=== PATIENT | female | born 1975 | race Caucasian/White ===

== ENCOUNTER 2017-01-14 19:57 | Observation (INO) | payer SELFPAY ==
--- NOTE | 2017-01-14 20:37 | EDPHY ---
H & P Time Seen by Provider: 01/14/17 20:22 HPI/ROS: CHIEF COMPLAINT: Hemoglobin of 6 HISTORY OF PRESENT ILLNESS: 41-year-old woman presents by her primary care physician at [facility] in [place] with hemoglobin of 6. She has a history of anemia but her hemoglobin was 12.8 in April of [address] Millan her primary care physician who called me at 7:56 p.m. prior to the patient's arrival. She presented to her physician this week with bilateral peripheral edema for 1 week, fatigue, and had these abnormal labs. Not associated with chest pain or shortness of breath. No syncope or fainting. No heavy menstrual periods or black or bloody stools. REVIEW OF SYSTEMS: Eye: no change in vision ENT: no sore throat Cardiac: no chest pain or syncope, no fainting, not lightheaded. Pulmonary: no cough or SOB Abdomen: no vomiting, diarrhea, abdominal pain Musculoskeletal: Chronic back pain, currently unchanged Skin: no rash or bruising Neuro: Intermittent headache not thunderclap in onset or worst of life Constitutional: no fever : no urinary symptoms, normal light menses. A comprehensive 10 point review of systems is otherwise negative aside from elements mentioned in the history of present illness. PAST MEDICAL HISTORY: Includes anemia, chronic back pain, . Thyroid disease. Social history: Primary care is at [facility] in [place] General Appearance: Alert and conversant, cooperative. Eyes: Pale conjunctiva, no scleral icterus. ENT, Mouth: Normal mucous membranes. Respiratory: Normal respiratory effort, breath sounds equal, lungs are clear to auscultation. Cardiovascular: Regular rate and rhythm. Tachycardic with 1/6 systolic murmur Gastrointestinal: Abdomen is soft and non tender. Neurological: Alert and oriented x3. Normally conversant. Face symmetric, normal movement and sensation in all extremities. Skin: Warm and dry, no rashes. Musculoskeletal: Patient has bilateral 1 to 2+ peripheral edema but no calf tenderness. Psychiatric: Not agitated. Emergency Department course/MDM: Repeat CBC, chemistries and test and EKG. Type and screen. Reason for performing rectal exam to evaluate for possible GI bleed discussed. Patient refused. 2117: Labs reviewed. White blood cell count 7.29, platelets 365, normal creatinine. Hemoglobin 6.5 and hematocrit 23.7. Results discussed with the patient. Plan to admit for further evaluation. Discussed with her PCP Dr. Millan at [phone]; who would like her admitted for further evaluation and treatment. She request discharge summary fax to . Office number [phone]. Discussed with hospitalist Dr. Cortez. MCV noted is low. Possibility of transfusion discussed with the patient, but I do not feel it is emergently required in the ED tonight. Information from [facility] PCP which was faxed to us is given to the ED nurse to and the inpatient RN, admitting hospitalist Eason is aware. Smoking Status: Never smoked Constitutional: Initial Vital Signs Temperature (C) 36.6 C 01/14/17 20:00 Heart Rate 114 H 01/14/17 20:00 Respiratory Rate 20 01/14/17 20:00 Blood Pressure 122/87 H 01/14/17 20:00 O2 Sat (%) 95 01/14/17 20:00 O2 Delivery Mode Room Air Allergies/Adverse Reactions: Penicillins Allergy (Verified 01/14/17 20:05) steri strips Allergy (Uncoded 01/14/17 20:05) Home Medications: Medication Instructions Recorded Amphet Asp and D/Amphet [Adderall 20 mg PO BID 01/14/17 20 mg (*)] Diclofenac Sodium [Voltaren 75 MG 75 mg PO BID 01/14/17 (*)] Zolpidem Tartrate [Ambien 5MG (*)] 5 mg PO HS PRN 01/14/17 oxyCODONE HCL [Oxycontin] 10 mg PO BID 01/14/17 oxyCODONE HCL/ACETAMINOPHEN 1 each PO BID 01/14/17 [Percocet 10-325 mg Tablet] traMADol [Ultram 50 mg (*)] 100 mg PO QID 01/14/17 Medical Decision Making - Diagnostics EKG Interpretation: 12-lead EKG interpreted by me; official reading is in trace master. My interpretation is sinus tachycardia with borderline prolonged QT interval but no acute ischemic changes, rate 104. Differential Diagnosis: Differential for anemia considered including but not limited to iron deficiency , upper GI bleed, menstrual losses, lower GI bleed, primary bone marrow problem. Consult/Admit Bed Type: [facility] - Data Points Laboratory Results: Laboratory Results 01/14/17 20:48 01/14/17 20:48 01/14/17 01/14/17 01/14/17 20:48 20:48 20:48 WBC RBC Hgb Hct MCV MCH MCHC RDW Plt Count MPV Neut % (Auto) Lymph % (Auto) [place] % (Auto) Eos % (Auto) Baso % (Auto) Nucleat RBC Rel Count Absolute Neuts (auto) Absolute Lymphs (auto) Absolute Monos (auto) Absolute Eos (auto) Absolute Basos (auto) Absolute Nucleated RBC Immature Gran % Immature Gran # Platelet Estimate Polychromasia Hypochromasia Microcytic Cells Smear Review By Sodium 136 mEq/L mEq/L (134-144) Potassium 3.9 mEq/L mEq/L (3.5-5.2) Chloride 105 mEq/L mEq/L (97-110) Carbon Dioxide 27 mEq/l mEq/l (22-31) Anion Gap 4 mEq/L L mEq/L (8-16) BUN 14 mg/dL mg/dL (7-23) Creatinine 0.6 mg/dL mg/dL (0.6-1.0) Estimated GFR > 60 Glucose 85 mg/dL mg/dL (70-100) Calcium 8.3 mg/dL L mg/dL (8.5-10.4) Beta HCG, Qual NEGATIVE Patient ABO/Rh O POSITIVE Antibody Screen NEGATIVE 01/14/17 20:48 WBC 7.29 10^3/uL 10^3/uL (3.80-9.50) RBC 3.15 10^6/uL L 10^6/uL (4.18-5.33) Hgb 6.5 g/dL L g/dL (12.6-16.3) Hct 23.7 % L % (38.0-47.0) MCV 75.2 fL L fL (81.5-99.8) MCH 20.6 pg L pg (27.9-34.1) MCHC 27.4 g/dL L g/dL (32.4-36.7) RDW 16.0 % H % (11.5-15.2) Plt Count 365 10^3/uL 10^3/uL (150-400) MPV 8.9 fL fL (8.7-11.7) Neut % (Auto) 61.4 % % (39.3-74.2) Lymph % (Auto) 25.1 % % (15.0-45.0) [place] % (Auto) 7.1 % % (4.5-13.0) Eos % (Auto) 5.1 % % (0.6-7.6) Baso % (Auto) 1.0 % % (0.3-1.7) Nucleat RBC Rel Count 0.0 % % (0.0-0.2) Absolute Neuts (auto) 4.48 10^3/uL 10^3/uL (1.70-6.50) Absolute Lymphs (auto) 1.83 10^3/uL 10^3/uL (1.00-3.00) Absolute Monos (auto) 0.52 10^3/uL 10^3/uL (0.30-0.80) Absolute Eos (auto) 0.37 10^3/uL 10^3/uL (0.03-0.40) Absolute Basos (auto) 0.07 10^3/uL 10^3/uL (0.02-0.10) Absolute Nucleated RBC 0.00 10^3/uL 10^3/uL (0-0.01) Immature Gran % 0.3 % % (0.0-1.1) Immature Gran # 0.02 10^3/uL 10^3/uL (0.00-0.10) Platelet Estimate ADEQUATE (ADEQ) Polychromasia 1+ H Hypochromasia 1+ H Microcytic Cells 1+ H Smear Review By Pending Sodium Potassium Chloride Carbon Dioxide Anion Gap BUN Creatinine Estimated GFR Glucose Calcium Beta HCG, Qual Patient ABO/Rh Antibody Screen Departure - Departure Disposition: [facility] Inpatient Acute Clinical Impression: Anemia Condition: Good
--- NOTE | 2017-01-14 20:53 | CPEKG ---
Heart Rate: 104 RR Interval: 577 P-R Interval: 128 QRSD Interval: 76 QT Interval: 372 QTC Interval: 490 P [place]: 69 QRS [place]: 21 T Wave [place]: 20 EKG Severity - BORDERLINE ECG - EKG Impression: SINUS TACHYCARDIA EKG Impression: BORDERLINE T WAVE ABNORMALITIES EKG Impression: BORDERLINE PROLONGED QT INTERVAL Electronically Signed By: Chivo Parham 14-Jan-2017 21:31:49
[2017-01-14 21:07] LABS: % IMMATURE GRANULYOCYTES 0.3 % (0.0-1.1); ABSOLUTE IMMATURE GRANULOCYTES 0.02 10^3/uL (0.00-0.10); ADD DIFF? NO; ADD MORPH? YES; ADD SCAN? NO; ATYPICAL LYMPHOCYTE FLAG 20 (0-99); FRAGMENT RBC FLAG 20 (0-99); HEMATOCRIT 23.7 % (38.0-47.0); LEFT SHIFT FLG 0 (0-99); LIPEMIA HEMOLYSIS FLAG 70 (0-99); MEAN CELL HEMOGLOBIN 20.6 pg (27.9-34.1); MEAN CELL VOLUME 75.2 fL (81.5-99.8); MEAN PLATELET VOLUME 8.9 fL (8.7-11.7); PLATELET CLUMPS FLAG 0 (0-99); PLATELET COUNT 365 10^3/uL (150-400); RED BLOOD CELL COUNT 3.15 10^6/uL (4.18-5.33)
[2017-01-14 21:12] LABS: ANION GAP 4 mEq/L (8-16); CALCIUM 8.3 mg/dL (8.5-10.4); CARBON DIOXIDE 27 mEq/l (22-31); CHLORIDE 105 mEq/L (97-110); CREATININE 0.6 mg/dL (0.6-1.0); GLOMERULAR FILTRATION RATE > 60; GLUCOSE 85 mg/dL (70-100); POTASSIUM 3.9 mEq/L (3.5-5.2); SODIUM 136 mEq/L (134-144)
[2017-01-14 21:14] LABS: HEMOGLOBIN 6.5 g/dL (12.6-16.3); MEAN CELL HEMOGLOBIN CONCENTR. 27.4 g/dL (32.4-36.7)
[2017-01-14 22:04] LABS: HYPOCHROMIA 1+; MICROCYTES 1+; PLATELET ESTIMATE ADEQUATE (ADEQ); POLYCHROMASIA 1+
[2017-01-14] MEDS ORDERED: ONDANSETRON 4 MG/2 ML VIAL IVP PRN (22:16)
[2017-01-14] MEDS ORDERED: ONDANSETRON DISINTEGRATING 4 MG TAB PO PRN (22:16)
[2017-01-14] MEDS ORDERED: ACETAMINOPHEN 325 MG TAB PO PRN (22:16)
[2017-01-14 23:08] LABS: ALBUMIN 2.6 g/dL (3.5-5.0); TOTAL PROTEIN 4.8 g/dL (6.3-8.2)
[2017-01-14 23:13] LABS: BILIRUBIN,TOTAL 0.1 mg/dL (0.1-1.4); BILIRUBIN-CONJUGATED 0.1 mg/dL (0.0-0.5)
--- NOTE | 2017-01-14 23:47 | PDGENHP ---
History and Physical - Chief Complaint Fatigue, anemia - History of Present Illness 41 yo F w/ hx of hypothyroid presents from PCP with fatigue and anemia. Patient describes 2 weeks of severe fatigue and pedal edema. As a result she went to her PCP who checked labs. These were remarkable for a Hgb of 6.5 so PCP directed her to the ED for further evaluation. Patient denies any overt signs of bleeding or heavy periods. She has no family history of bleeding or clotting disorders. She is asymptomatic at the time of my evaluation aside from fatigue, which improved with fluids. She is being admitted for further evaluation and GI consultation. History Information - Allergies/Home Medication List Allergies/Adverse Reactions: Penicillins Allergy (Verified 01/14/17 20:05) steri strips Allergy (Uncoded 01/14/17 20:05) Home Medications: Amphet Asp and D/Amphet [Adderall 20 mg (*)] 20 mg PO BID 01/14/17 [Last Taken 01/14/17 06:00] Diclofenac Sodium [Voltaren 75 MG (*)] 75 mg PO BID 01/14/17 [Last Taken 19:00] Zolpidem Tartrate [Ambien 5MG (*)] 5 mg PO HS PRN 01/14/17 [Last Taken 01/12/17] oxyCODONE HCL [Oxycontin] 10 mg PO BID 01/14/17 [Last Taken 01/14/17 06:00] oxyCODONE HCL/ACETAMINOPHEN [Percocet 10-325 mg Tablet] 1 each PO BID 01/14/17 [ Last Taken 01/14/17 06:00] traMADol [Ultram 50 mg (*)] 100 mg PO QID 01/14/17 [Last Taken 01/14/17 12:00] I have personally reviewed and updated: family history, medical history - Past Medical History Additional medical history: Hypothyroid - Surgical History Additional surgical history: D&C complicated by blood loss anemia - Family History Additional family history: Denies family hx of blood disorders - Social History Smoking Status: Never smoked Review of Systems Review of Systems: ROS: 10pt was reviewed & negative except for what was stated in HPI & below Physical Exam Physical Exam: Temp Pulse Resp BP Pulse Ox 36.9 C 99 14 114/75 97 01/14/17 22:44 01/14/17 22:44 01/14/17 22:44 01/14/17 22:44 01/14/17 22:44 Constitutional: no apparent distress, not in pain Eyes: PERRL, EOMI, pale conjunctiva Ears, Nose, Mouth, Throat: moist mucous membranes, no oral mucosal ulcers Cardiovascular: regular rate and rhythym, systolic murmur Respiratory: no respiratory distress, no rales or rhonchi Gastrointestinal: normoactive bowel sounds, soft, non-tender abdomen Skin: warm, normal color Musculoskeletal: full muscle strength, no muscle tenderness Neurologic: AAOx3, CN II-XII Intact Psychiatric: interacting appropriately, not anxious Lab Data & Imaging Review 01/14/17 20:48 01/14/17 20:48 WBC 7.29 10^3/uL (3.80-9.50) 01/14/17 20:48 RBC 3.15 10^6/uL (4.18-5.33) L 01/14/17 20:48 Hgb 6.5 g/dL (12.6-16.3) L 01/14/17 20:48 Hct 23.7 % (38.0-47.0) L 01/14/17 20:48 MCV 75.2 fL (81.5-99.8) L 01/14/17 20:48 MCH 20.6 pg (27.9-34.1) L 01/14/17 20:48 MCHC 27.4 g/dL (32.4-36.7) L 01/14/17 20:48 RDW 16.0 % (11.5-15.2) H 01/14/17 20:48 Plt Count 365 10^3/uL (150-400) 01/14/17 20:48 MPV 8.9 fL (8.7-11.7) 01/14/17 20:48 Neut % (Auto) 61.4 % (39.3-74.2) 01/14/17 20:48 Lymph % (Auto) 25.1 % (15.0-45.0) 01/14/17 20:48 [place] % (Auto) 7.1 % (4.5-13.0) 01/14/17 20:48 Eos % (Auto) 5.1 % (0.6-7.6) 01/14/17 20:48 Baso % (Auto) 1.0 % (0.3-1.7) 01/14/17 20:48 Nucleat RBC Rel Count 0.0 % (0.0-0.2) 01/14/17 20:48 Absolute Neuts (auto) 4.48 10^3/uL (1.70-6.50) 01/14/17 20:48 Absolute Lymphs (auto) 1.83 10^3/uL (1.00-3.00) 01/14/17 20:48 Absolute Monos (auto) 0.52 10^3/uL (0.30-0.80) 01/14/17 20:48 Absolute Eos (auto) 0.37 10^3/uL (0.03-0.40) 01/14/17 20:48 Absolute Basos (auto) 0.07 10^3/uL (0.02-0.10) 01/14/17 20:48 Absolute Nucleated RBC 0.00 10^3/uL (0-0.01) 01/14/17 20:48 Immature Gran % 0.3 % (0.0-1.1) 01/14/17 20:48 Immature Gran # 0.02 10^3/uL (0.00-0.10) 01/14/17 20:48 Platelet Estimate ADEQUATE (ADEQ) 01/14/17 20:48 Polychromasia 1+ H 01/14/17 20:48 Hypochromasia 1+ H 01/14/17 20:48 Microcytic Cells 1+ H 01/14/17 20:48 Sodium 136 mEq/L (134-144) 01/14/17 20:48 Potassium 3.9 mEq/L (3.5-5.2) 01/14/17 20:48 Chloride 105 mEq/L (97-110) 01/14/17 20:48 Carbon Dioxide 27 mEq/l (22-31) 01/14/17 20:48 Anion Gap 4 mEq/L (8-16) L 01/14/17 20:48 BUN 14 mg/dL (7-23) 01/14/17 20:48 Creatinine 0.6 mg/dL (0.6-1.0) 01/14/17 20:48 Estimated GFR > 60 01/14/17 20:48 Glucose 85 mg/dL (70-100) 01/14/17 20:48 Calcium 8.3 mg/dL (8.5-10.4) L 01/14/17 20:48 Total Bilirubin 0.1 mg/dL (0.1-1.4) 01/14/17 20:48 Conjugated Bilirubin 0.1 mg/dL (0.0-0.5) 01/14/17 20:48 Unconjugated Bilirubin 0.0 mg/dL (0.0-1.1) 01/14/17 20:48 AST 21 IU/L (14-46) 01/14/17 20:48 ALT 28 IU/L (9-52) 01/14/17 20:48 Alkaline Phosphatase 59 IU/L (38-126) 01/14/17 20:48 Total Protein 4.8 g/dL (6.3-8.2) L 01/14/17 20:48 Albumin 2.6 g/dL (3.5-5.0) L 01/14/17 20:48 Beta HCG, Qual NEGATIVE 01/14/17 20:48 Patient ABO/Rh O POSITIVE 01/14/17 20:48 Antibody Screen NEGATIVE 01/14/17 20:48 Visualized and Interpreted EKG results: Yes EKG Interpretation: Positive for: normal sinsus rhythm Assessment & Plan Assessment: 41 yo F w/ hypothyroid presents with acute on chronic anemia of unclear etiology. Plan: 1. Microcytic anemia - Hgb 6.5 on admission with unclear etiology and no overt signs of bleeding; patient also denies heavy menses. Other cell lines WNL. B- HCG negative. Bilirubin WNL making hemolysis unlikely. - Patient would prefer to defer transfusion for now - Check TSH, iron studies, reticulocyte count, LDH, haptoglobin - Peripheral smear final review pending - Discussed with GI Dr. Schultz who did not feel urgent evaluation was necessary. He did ask to make patient NPO and GI will see tomorrow 2. Pedal edema - Likely 2/2 hypoalbuminemia , but unclear why this is ongoing; other LFTs unremarkable. Thyroid disease or malnutrition are possible considerations. - Check UA to screen for proteinuria - No signs or symptoms of CHF, will not obtain TTE at this time 3. Hypothyroid - On LTX chronically, checking TSH. Diet - NPO @ [place] Code - Full Ppx - SCDs Dispo - Admit to observation status
[2017-01-15] MEDS: traMADol 50 MG TAB PO PRN ×2 (00:17→09:37)
[2017-01-15] MEDS: oxyCODONE IR 5 MG TAB PO PRN ×3 (01:11→12:39)
[2017-01-15 05:40] LABS: % IMMATURE GRANULYOCYTES 0.4 % (0.0-1.1); ABSOLUTE IMMATURE GRANULOCYTES 0.02 10^3/uL (0.00-0.10); ADD DIFF? NO; ADD MORPH? YES; ADD SCAN? NO; ATYPICAL LYMPHOCYTE FLAG 40 (0-99); FRAGMENT RBC FLAG 0 (0-99); HEMATOCRIT 22.4 % (38.0-47.0); LEFT SHIFT FLG 0 (0-99); LIPEMIA HEMOLYSIS FLAG 70 (0-99); MEAN CELL HEMOGLOBIN 20.4 pg (27.9-34.1); MEAN CELL VOLUME 74.9 fL (81.5-99.8); MEAN PLATELET VOLUME 8.7 fL (8.7-11.7); PLATELET CLUMPS FLAG 0 (0-99); PLATELET COUNT 311 10^3/uL (150-400); RED BLOOD CELL COUNT 2.99 10^6/uL (4.18-5.33); RED CELL DISTRIBUTION WIDTH 15.9 % (11.5-15.2)
[2017-01-15 05:46] LABS: COLOR PALE YELLOW; LEUKOCYTE ESTERASE,URINE NEGATIVE (NEGATIVE); NITRITE,URINE NEGATIVE (NEGATIVE)
[2017-01-15 05:50] LABS: ANION GAP 5 mEq/L (8-16); CALCIUM 8.2 mg/dL (8.5-10.4); CARBON DIOXIDE 24 mEq/l (22-31); CHLORIDE 111 mEq/L (97-110); CREATININE 0.6 mg/dL (0.6-1.0); GLOMERULAR FILTRATION RATE > 60; GLUCOSE 88 mg/dL (70-100); HEMOGLOBIN 6.1 g/dL (12.6-16.3); LACTATE DEHYDROGENASE 284 IU/L (313-618); MEAN CELL HEMOGLOBIN CONCENTR. 27.2 g/dL (32.4-36.7); POTASSIUM 4.1 mEq/L (3.5-5.2); SODIUM 140 mEq/L (134-144)
[2017-01-15 05:59] LABS: % SATURATION 3 % (20-55); TOTAL IRON BINDING CAPACITY 332 ug/dL (260-490)
[2017-01-15 06:21] LABS: FERRITIN - BCH 3.1 ng/mL (6.2-264.0)
[2017-01-15 06:29] LABS: HYPOCHROMIA 1+; MACROCYTES 1+; PLATELET ESTIMATE ADEQUATE (ADEQ); POLYCHROMASIA 1+
[2017-01-15] MEDS ORDERED: SODIUM FERRIC GLUCONAT/SUCROSE 125 MG in NS 100 ML IV SCH (09:30)
[2017-01-15] MEDS ORDERED: PROPOFOL/EMULSION 500 MG/50 ML BOTTLE IV ONE (10:21)
--- NOTE | 2017-01-15 10:28 | PDANEPAE ---
ANE History of Present Illness 41 year old female w/ PMHx of hypothyroidism and recently diagnosed anemia (Hgb= 6.1) presents for EGD. Inpatient. ANE Past Medical History - Cardiovascular History Hx Hypertension: No Hx Arrhythmias: No Hx Chest Pain: No Hx Coronary Artery / Peripheral Vascular Disease: No Hx CHF / Valvular Disease: No Hx Palpitations: No - Pulmonary History Hx COPD: No Hx Asthma/Reactive Airway Disease: No Hx Recent Upper Respiratory Infection: No Hx Oxygen in Use at Home: No Hx Sleep Apnea: No Sleep Apnea Screening Result - Last Documented: Negative - Endocrine History Hx Diabetes: No Hypothyroid: Yes Hyperthyroid: Yes Obesity: no Endocrine History Comment: Thyroid (hypothyroid - but on replacement therapy that has her hyperthyroid per patient report) - Renal History Hx Renal Disorders: No - Liver History Hx Hepatic Disorders: No - Neurological & Psychiatric Hx Hx Neurological and Psychiatric Disorders: No - Cancer History Hx Cancer: No - Congenital Disorder History Hx Congenital Disorders: No - Other Health History Other Health History: Anemia - etiology unknown. Hgb=6.1 - Chronic Pain History Chronic Pain: Yes ANE Review of Systems Review of systems is: negative Review of Systems: - Exercise capacity Exercise capacity: >=4 METS ANE Patient History - Allergies Allergies/Adverse Reactions: Penicillins Allergy (Verified 01/14/17 20:05) steri strips Allergy (Uncoded 01/14/17 20:05) - Home Medications Home medications: home medication list seen and reviewed Home Medications: Amphet Asp and D/Amphet [Adderall 20 mg (*)] 20 mg PO BID 01/14/17 [Last Taken 01/14/17 06:00] Diclofenac Sodium [Voltaren 75 MG (*)] 75 mg PO BID 01/14/17 [Last Taken 19:00] Zolpidem Tartrate [Ambien 5MG (*)] 5 mg PO HS PRN 01/14/17 [Last Taken 01/12/17] oxyCODONE HCL [Oxycontin] 10 mg PO BID 01/14/17 [Last Taken 01/14/17 06:00] oxyCODONE HCL/ACETAMINOPHEN [Percocet 10-325 mg Tablet] 1 each PO BID 01/14/17 [ Last Taken 01/14/17 06:00] traMADol [Ultram 50 mg (*)] 100 mg PO QID 01/14/17 [Last Taken 01/14/17 12:00] - NPO status NPO Status: no food or drink >8 hours - Anes Hx Anes Hx: no prior problems - Smoking Hx Smoking Status: Never smoked Marijuana use: No - Alcohol Use Alcohol Use: Rarely - Family Anes Hx Family Anes Hx: neg - N/A ANE Labs/Vital Signs - Labs Result Diagrams: 01/15/17 05:12 01/15/17 05:12 - Vital Signs Vital Signs: reviewed preoperatively; see RN documention for details Blood Pressure: 104/61 Heart Rate: 99 Respiratory Rate: 16 O2 Sat (%): 91 Height: 162.56 cm Weight: 61.689 kg ANE Physical Exam - Airway Neck exam: FROM Mallampati Score: Class 1 Mouth exam: normal dental/mouth exam - Pulmonary Pulmonary: no respiratory distress - Cardiovascular Cardiovascular: regular rate and rhythym - ASA Status ASA Status: II ANE Anesthesia Plan Anesthesia Plan: GA with mask Total IV Anesthesia: Yes
[2017-01-15] MEDS ORDERED: ONDANSETRON 4 MG/2 ML VIAL IVP PRN (10:46)
[2017-01-15] MEDS ORDERED: fentaNYL 100 MCG/2 ML INJ IVP PRN (10:46)
[2017-01-15] MEDS ORDERED: NALOXONE HCL 0.4 MG/ML INJ IVP PRN (10:46)
[2017-01-15] MEDS ORDERED: LR 500 ML IV PRN (10:46)
--- NOTE | 2017-01-15 10:51 | POSTOPPROG ---
Post Op Note Date of Operation: 01/15/17 Surgeon: Robinson Schultz Anesthesiologist: Robinson Lemon MD Anesthesia: Other (Specify) (IV general) Pre-op Diagnosis: iron def anemia Post-op Diagnosis: gastritis with small amount of heme and duodenitis s/p bx Indication: iron def anmeia HB = 6.1 Procedure: EGD and bx cold forceps Findings: gastritis mild, with small amount of heme present Inf/Abcess present in the surg proc area at time of surgery?: No EBL: Minimal (few ml from cold bx) Total fluids administered: 200 ml LR Complications: none immediate
--- NOTE | 2017-01-15 11:14 | GIREPORT ---
[facility] Surgical Services - Endoscopy Department Patient Name: Jenelle Morales Procedure Date: 01/15/2017 10:36 AM Patient Type: Inpatient Attending MD/ ER Physician: Bill Pickett Procedure: Upper GI endoscopy Indications: Suspected upper gastrointestinal bleeding in patient with unexplained i sagrario deficiency anemia Providers: Jin Schultz MD Referring MD: Idris Alfaro MD Medicines: Total IV Anesthesia (TIVA) = IV general Complications: No immediate complications. Estimated blood loss: Minimal. Description of Procedure: After obtaining informed consent, the endoscope was passed under direct vision. Throughout the procedure, the patient's blood pressure, pulse, and oxygen saturations were monitored continuously. The was introduced thro ugh the mouth, and advanced to the fourth part of duodenum. The upper GI endoscopy was accomplished without difficulty. The patient tolerated th e procedure well. Findings: The examined esophagus was normal. Scattered mild inflammation characterized by adherent blood, friability and granularity was found in the gastric body and in the gastric antrum. Biopsies were taken with a cold forceps for histology. Estimated blood loss was minimal. Scattered mild mucosal variance characterized by erythema and altered texture was found in the entire duodenum. Biopsies for histology were t aken with a cold forceps for evaluation of celiac disease. Estimated blood l oss was minimal. The exam was otherwise without abnormality. Estimated Blood Loss: Estimated blood loss was minimal. Post Op Diagnosis: - Normal esophagus. - Gastritis. Biopsied. This might account for her anemia, but I was expecting to see much more inflammation and or ulceration and I didn't see any "big smoking gun" findings on her EGD - Mucosal variant in the duodenum. Biopsied. - The examination was otherwise normal. Recommendation: - Await pathology results. - My office will call with the pathology result with 5-7 days. If you h ave not heard from my office by 01-21, do not assume the pathology is kerry l, please call [phone] to get the pathology results. - Use Protonix (pantoprazole) 40 mg PO daily for 8 weeks. Take 30-60 mi nutes before breakfast. - Perform a colonoscopy tomorrow. I will discuss with her when she is n ot sedated. Insurance and cost is an issue for her. - If colon is negative and iron deficiency dose not resolve or recurs a nd no Celiac disease, then small bowel pill camera study. - [facility] to [facility] care. - Clear liquid diet. - Thank you for allowing me to help in your patient's care. Do not hesi leonardo to call with any questions. Attending Participation: I personally performed the entire procedure. Marion Abdi M.D Jin Schultz MD 01/15/2017 11:13:58 AM This report has been signed electronicallyMathew MD Marion Number of Addenda: 0 Note Initiated On: 01/15/2017 10:36 AM [email or web address]
--- NOTE | 2017-01-15 11:18 | GCON ---
[f rep st] CONSULTATION CONSULTATION. DATE OF CONSULTATION: 01/15/2017 REFERRING PHYSICIAN: Renetta Solano MD INDICATION FOR CONSULTATION: Symptomatic anemia. HISTORY OF PRESENT ILLNESS: Jenelle is a pleasant 41-year-old female with past medical history significant for hypothyroidism, back pain, who is on chronic pain medications as well as Ambien at night. She has also been taking diclofenac for 1 year. Approximately 3 weeks ago, she started to notice some dyspnea on exertion and lower extremity edema. She presented to her PCP who judith laboratory data that showed significant anemia and she was directed to the ER for further evaluation. She denies any nausea, vomiting, dysphagia, odynophagia, or early satiety. She does not complain of any diarrhea, constipation, hematochezia, melena, hematemesis, epistaxis or hematuria. She does take diclofenac for the last year. There is no family history of colon cancer, colon polyps to her knowledge. There is hyperthyroidism in her family and maternal grandfather had prostate cancer, maternal grandmother had ovarian cancer. Because of her significant anemia, she was admitted for evaluation, I am called to help in that regard. PAST MEDICAL SURGICAL HISTORY: Hypothyroidism, back pain, C-sections, D and C, tonsillectomy. HOME MEDICATIONS: Tramadol, oxycodone, Ambien, Synthroid and diclofenac, Adderall. HOSPITAL MEDICATIONS: Tylenol p.r.n., IV iron, Zofran p.r.n., oxycodone p.r.n. , Ultram 100 mg p.o. four times daily p.r.n. ALLERGIES: Penicillin and Steri-Strips. SOCIAL HISTORY: She does not smoke. She drinks alcohol rarely. She exercises regularly. FAMILY HISTORY: no colon cancer, REVIEW OF SYSTEMS: A complete review of systems performed is negative other than in the HPI. PHYSICAL EXAM: GENERAL: Well developed, well nourished, no acute distress, sitting in her bed comfortably. VITAL SIGNS: Blood pressure is 104/61, pulse 75, respirations 16, she is 91% on room air, temperature is 36.8. EYES: Anicteric. MILAN. EOMI. Mouth no lesions, moist membranes. NECK: Supple. Full range of motion. No JVD. BACK: No spine tenderness. No CVA tenderness. LUNGS: Clear to auscultation. CARDIAC: S1, S2. Regular rate and rhythm. No murmurs, rubs or gallops appreciated. ABDOMEN: Soft. No tenderness. No rebound. No guarding. EXTREMITIES: No cyanosis, clubbing. Trace edema lower extremities. NEUROLOGIC: Cranial nerves intact nonfocal. Alert and oriented x3. LABORATORY DATA: On admission, hemoglobin 6.1, hematocrit 23.7, that was yesterday at approximately 9 p.m. Today, WBC 4.88, hemoglobin 6.1, hematocrit 22.4, platelet count is 311, MCV 74.9, RDW 27.2. Sodium 140, potassium 4.1, chloride 111, bicarb 24, BUN 9, creatinine 0.6, calcium 8.2, iron 11, TIBC 332, iron saturation 3, ferritin 3.1. From last night AST 21, ALT 28, alkaline phosphatase 59, bilirubin 0.1, albumin 2.6, total protein 4.6. From today her LDH is little bit low at 284. TSH is low at 0.015. From yesterday beta HCG is negative. EKG performed last night, sinus tachycardia, borderline for long QT, borderline T-wave abnormalities. ASSESSMENT: 1. Iron-deficiency anemia most likely from chronic gastrointestinal blood loss related to her diclofenac. 2. Hypothyroidism. 3. Chronic pain. 4. Use of oxycodone, Ambien and Adderall. RECOMMENDATIONS: 1. Ideally, patient should have an EGD, colonoscopy. Currently, she is uninsured and wants to see if we can decrease the cost somewhat. I do believe that she is more likely to have an upper GI bleeding source than a colonic source given her age and her diclofenac use and lack of any significant family history. Currently, we are going to plan an EGD with anesthesia. and if the EGD reveals an abnormality consistent that would cause the iron deficiency we are going to treat that and recommend colonoscopy as an outpatient when she obtains insurance. 2. Patient declines blood transfusion at present, but she is getting some iron infusion which should help her body replete her hemoglobin and hematocrit. 3. Follow results of EGD. 4. I do recommend that she make a concerted effort to come off chronic narcotic use and also to avoid chronic NSAID use. 5. After discharge, she will follow up with her PCP. She may require followup with us other than a colonoscopy in the near future. Thank you for allowing me to participate in your patient's healthcare. Do not hesitate to call me with any question. Copy requested to: Idris Alfaro MD /[id number]/MODL [email or web address]
--- NOTE | 2017-01-15 11:46 | POSTANESTH ---
Post Anesthetic Evaluation Cardiovascular Status: Normal, Stable, Similar to Pre-Op Cond Respiratory Status: Normal, Stable, Similar to Pre-op Cond. Level of Consciousness/Mental Status: Can Participate in Eval, Alert and Oriented Pain Control: Adequate, Prn Tx Ordered Nausea/Vomiting Control: Adequate, Prn Tx Ordered Complications Possibly Related to Anesthesia: None Noted
--- NOTE | 2017-01-15 14:23 | ASMTCMCOM ---
CM Note CM Note Notes: 01/15/2017 Case Management Note Reviewed chart. No case management d/c needs identified d/t pt age, marital status and activity levels prior to admission. There are no OT or PT evals ordered at this time. Case Management d/c poc: Home independent when medically stable with follow up as directed. Case Management available if needs change. Date Signed: 01/15/2017 02:22 PM Electronically Signed By:Priscilla Colon RN
[2017-01-15] MEDS ORDERED: ZOLPIDEM TARTRATE 5 MG TAB PO PRN (15:11)
[2017-01-15] MEDS ORDERED: PANTOPRAZOLE SODIUM 40 MG TAB PO SCH (15:15)
[2017-01-15 16:20] VITALS: BP 117/68; PULSE 100; RESP 18; TEMP 98.1; O2SAT 98
[2017-01-15] MEDS ORDERED: PEG 3350/NA SULF,BICARB,CL/KCL (GAVILYTE-G) 4000 ML BTL PO ONE (17:00)
--- NOTE | 2017-01-15 17:02 | PDDCSUM ---
Discharge Summary Discharge Summary: DISCHARGE SUMMARY FOLLOW-UP ITEMS: Follow-up outpatient CBC and complete metabolic profile DATE OF ADMISSION: 01/14/2017 DATE OF DISCHARGE: 01/15/2017 DISCHARGE DIAGNOSES: 1. Iron deficient anemia 2. Gastritis 3. Chronic pain with continuous opiate dependency CONSULTATIONS: Gastroenterology PROCEDURES / IMAGING: Upper endoscopy demonstrating gastritis, no source of active bleeding CHIEF COMPLAINT: Fatigue SUBJECTIVE: Patient is feeling well at time of discharge, she is able to ambulate without any symptoms PHYSICAL EXAM ON DISCHARGE: Systolic blood pressure is 100-120, heart rate 100, afebrile overnight, satting well on room air, alert awake oriented x3, pale in appearance LABS ON DISCHARGE: Hemoglobin 6.1, iron 11, saturation 3%, TIBC 332, LDH 280, reticulocyte percent 2.7% TSH less than 0.015 creatinine 0.6, BUN 9, urinalysis unremarkable albumin 2.6 liver panel unremarkable test negative platelets [id number] HOSPITAL COURSE BY PROBLEM: The patient presented with iron deficient anemia as evidenced by hemoglobin between 6.1-6.5, low iron count, low saturation, mildly elevated TIBC, without any signs of hemolysis, with a normal LDH, normal bilirubin. The patient declined blood transfusion, but did except 1 treatment of IV iron. She underwent upper endoscopy which demonstrated some blood, as well as gastritis, but no source of active bleeding. Is unclear whether this is the cause of a chronic iron deficient anemia, verses lower GI process. The patient was advised to have a colonoscopy for completeness sake, and she will undergo this as an outpatient. I recommended that she continue proton pump inhibitor daily, as well as iron supplement, and have repeat hemoglobin and metabolic profile drawn next week. She should have close outpatient follow-up with either GI of the [facility] primary care provider. Patient was also concerned about lower extremity edema, and this is most likely secondary to her anemia, resulting in a low albumin level as well as low oncotic pressure. The patient was recommended to wear compression stockings, elevate her legs, and improve her anemia in order to accomplish improvement in her edema. I did not recommend use of a diuretic, given that she has a low normal blood pressure at baseline. DISCHARGE MEDICATIONS: Please see official discharge medication reconciliation sheet in chart , iron 325 twice daily, Senokot S twice daily, pantoprazole 40 mg once daily. Patient will continue on her other pain medications. DISCHARGE INSTRUCTIONS: Please follow up with either GI of the [facility] primary care provider office.
[2017-01-15] MEDS ORDERED: ADDERALL 20 MG TAB PO SCH (21:00)
[2017-01-15] MEDS ORDERED: NON-FORMULARY NEW DRUG (Oxycodone Hcl/Acetaminophen [Percocet 10-325 Mg Tablet] 1 EACH) PO SCH (21:00)
[2017-01-15] MEDS ORDERED: OXYCODONE/APAP 5/325 TAB PO SCH (21:00)
--- NOTE | 2017-01-16 13:48 | ASDISCHSUM ---
Discharge Information Plan Status:Home with No Needs Medically Cleared to Leave: Discharge Date:01/15/2017 05:35 PM CM D/C Disposition:Home, Routine, Self-Care ADT D/C Disposition:Home, Routine, Self-Care Projected Discharge Date:01/15/2017 05:35 PM Transportation at D/C:Family Discharge Delay Reason: Follow-Up Date:01/15/2017 05:35 PM Discharge Slot: Final Diagnosis: Placement Information Patient Contact Information Contact Name:RIMMA Relationship: Address:[address] Work Phone: [facility]:PRINCESS ANNE Alternate Phone: [facility]/Zip Code:[place] [address] Email: Financial Information Financial Class:Self-Pay Primary Plan Desc:SELF PAY Primary Plan Number: Secondary Plan Desc: Secondary Plan Number: Assessment Information [facility] CM Progress Note CM Note CM Note Notes: 01/15/2017 Case Management Note Reviewed chart. No case management d/c needs identified d/t pt age, marital status and activity levels prior to admission. There are no OT or PT evals ordered at this time. Case Management d/c poc: Home independent when medically stable with follow up as directed. Case Management available if needs change. Date Signed: 01/15/2017 02:22 PM Electronically Signed By:Priscilla Colon RN Intervention Information
== END 2017-01-15 17:35 | disposition home or self-care (01) ==
LOC: F3E 22:33
PROVIDERS: ADMIT Internal Medicine; ATTEND Internal Medicine
PROC: 0DB98ZX Excision of Duodenum, Via Natural or Artificial Opening Endoscopic, Diagnostic (ICD-10-PCS; principal; 2017-01-14)
PROC: 0DB78ZX Excision of Stomach, Pylorus, Via Natural or Artificial Opening Endoscopic, Diagnostic (ICD-10-PCS; principal; 2017-01-14)
PROC: 0DB68ZX Excision of Stomach, Via Natural or Artificial Opening Endoscopic, Diagnostic (ICD-10-PCS; principal; 2017-01-14)
DX: D50.0 Iron deficiency anemia secondary to blood loss (chronic) (principal); T39.395A Adverse effect of other nonsteroidal anti-inflammatory drugs [NSAID], initial encounter; K29.71 Gastritis, unspecified, with bleeding; G89.29 Other chronic pain; F11.20 Opioid dependence, uncomplicated; E88.09 Other disorders of plasma-protein metabolism, not elsewhere classified; E03.9 Hypothyroidism, unspecified
CPT/HCPCS: 83010-90; G0378; J2704; J2916

== ENCOUNTER 2017-03-10 10:38 | Emergency (ER) | payer MEDICAID ==
--- NOTE | 2017-03-10 12:15 | EDPHY ---
H & P Stated Complaint: anemia/?esophageal bleed/upper abd pain Time Seen by Provider: 03/10/17 12:14 HPI/ROS: HPI: This is a 41-year-old female who presents with Chief Complaint: anemia/?esophageal bleed/upper abd pain Location: Epigastric Quality: Pain Duration: 1-2 weeks Signs and Symptoms: no fever, + nausea, no vomiting, no hematemesis, no blood in stool, no abdominal bloating, no diarrhea, no back pain, no urinary symptoms , no vaginal bleeding/discharge, no indigestion, no chest pain, no shortness of breath, + indigestion, no dysphagia Timing: Gradual onset, constant Severity: Moderate to severe Context: Patient presents with 1 week history epigastric, sharp pain that is constant and worsens when she tries to eat food. She is able to drink fluids without difficulty. She reports that she was admitted in January for iron deficiency anemia that required iron transfusion but declined blood transfusion. EGD at that time showed gastritis, duodenitis. There is a history of opiate dependency. She takes Protonix 40 mg daily. She denies any recent NSAID or steroid use. She reports 10-15 lb weight loss over the last month. She denies any hematemesis/blood in stool/vomiting/diarrhea. Modifying Factors: Comment: ROS: see HPI Constitutional: No fever, no chills, no weight loss Eyes: No blurred vision Respiratory: No shortness of breath, no cough Cardiovascular: No chest pain, no palpitations Gastrointestinal: + nausea, no vomiting, no diarrhea, no hematemesis, no blood in stool Genitourinary: No dysuria, no blood in urine Extremities: No myalgias, no edema Neurologic: No weakness, no numbness Skin: No rashes, no petechiae Hematologic: No bruising, no bleeding MEDICAL/SURGICAL/SOCIAL HISTORY: Medical/Surgical history: , herniated disc, bursitis, hypothyroid / anemia Social history: Relationship. CONSTITUTIONAL: Extremely well-appearing adult female, awake and alert, no obvious distress HEENT: Atraumatic and normocephalic, PERRL, EOMI. Tympanic membranes clear. Oropharynx clear, no exudate and moist pink mucosa. Airway patent. No lymphadenopathy. No meningismus. Cardiovascular: Normal S1/S2, regular rate, regular rhythm, without murmur rub or gallop. PULMONARY/CHEST: Symmetrical and nontender. Clear to auscultation bilaterally. Good air movement. No accessory muscle usage. ABDOMEN: Soft, nondistended, moderate epigastric and right upper quadrant tenderness, no rebound, no guarding, no peritoneal signs, no masses or organomegaly. No CVAT. EXTREMITIES: 2/2 pulses, strength 5/5, no deformities, no clubbing, no cyanosis or edema. NEUROLOGICAL: no focal neuro deficits. GCS 15. SKIN: Warm and dry, no erythema. no rash. Good capillary refill. Source: Patient Exam Limitations: No limitations - Personal History LMP (Females 10-55): Over 28 Days Ago Current Tetanus/Diphtheria Vaccine: Yes - Medical/Surgical History Hx Asthma: No Hx Chronic Respiratory Disease: No Hx Diabetes: No Hx Cardiac Disease: No Hx Renal Disease: No Hx Cirrhosis: No Hx Alcoholism: No Hx HIV/AIDS: No Hx Splenectomy or Spleen Trauma: No Other PMH: , herniated disc, bursitis, hypothyroid / anemia - Social History Smoking Status: Never smoked Constitutional: Initial Vital Signs Temperature (C) 36.4 C 03/10/17 10:54 Heart Rate 102 H 03/10/17 10:54 Respiratory Rate 20 03/10/17 10:54 Blood Pressure 105/77 03/10/17 10:54 O2 Sat (%) 100 03/10/17 10:54 O2 Delivery Mode Room Air Allergies/Adverse Reactions: Penicillins Allergy (Verified 03/10/17 10:53) steri strips Allergy (Uncoded 01/14/17 20:05) Home Medications: Medication Instructions Recorded Amphet Asp and D/Amphet [Adderall 20 mg PO BID 01/14/17 20 mg (*)] Zolpidem Tartrate [Ambien 5MG (*)] 5 mg PO HS PRN 01/14/17 oxyCODONE HCL [Oxycontin] 10 mg PO BID 01/14/17 oxyCODONE HCL/ACETAMINOPHEN 1 each PO BID 01/14/17 [Percocet 10-325 mg Tablet] traMADol [Ultram 50 mg (*)] 100 mg PO QID 01/14/17 Acetaminophen [Tylenol 325mg (*)] 650 mg PO Q4HRS PRN tab 01/15/17 Ferrous Sulfate [Iron] 325 mg PO BID #60 tablet 01/15/17 Pantoprazole Sodium [Protonix 40mg 40 mg PO DAILY #30 tab 01/15/17 (*)] Sennosides/Docusate Sodium 1 tab PO BID #60 tab 01/15/17 [Senokot-S] Sucralfate [Carafate 1 GM (*)] 1 gm PO ACHS #28 tab 03/10/17 Medical Decision Making - Diagnostics Imaging Results: Imaging Impressions Chest X-Ray 03/10/17 12:15 Impression: No acute thoracic abnormality. No obvious subdiaphragmatic free air. Abdomen Ultrasound 03/10/17 14:52 Impression: 1. Borderline hydropic gallbladder, with dependent intraluminal sludge. No secondary signs to suggest acute cholecystitis. 2. Trace free fluid. Findings discussed with Emergency Department Physician Comb Winder, JETT Argueta, on March 10, 2017 at 1600. ED Course/Re-evaluation: Labs, x-ray imaging, IV fluids, IV and oral medication Given 1 L normal saline, IV Pepcid and p.o. GI cocktail Labs reviewed and show H&H; improved from prior values; no leukocytosis/ electrolyte imbalance/anemia/kidney injury/elevated LFTs X-ray showed no subdiaphragmatic abnormality or free air. Right upper quadrant ultrasound shows sludge; no signs of stones or cholecystitis Repeat abdominal exam is greatly improved. Patient drinking fluids without difficulty. Discussed GERD/gastritis diet, starting with broth diet slowly advance as tolerated, taking gummy vitamins as iron pills make her nauseous This patient was seen under the supervision of my primary supervising physician. I evaluated care for this patient independently. Differential Diagnosis: Abdominal pain including but not limited to appendicitis, cholecystitis, gastritis and urinary tract infection. - Data Points Laboratory Results: Laboratory Results 03/10/17 12:50 03/10/17 12:50 03/10/17 03/10/17 03/10/17 12:50 12:50 12:50 WBC 8.88 10^3/uL 10^3/uL (3.80-9.50) RBC 4.31 10^6/uL 10^6/uL (4.18-5.33) Hgb 10.5 g/dL L g/dL (12.6-16.3) Hct 35.2 % L % (38.0-47.0) MCV 81.7 fL fL (81.5-99.8) MCH 24.4 pg L pg (27.9-34.1) MCHC 29.8 g/dL L g/dL (32.4-36.7) RDW 20.8 % H % (11.5-15.2) Plt Count 703 10^3/uL H 10^3/uL (150-400) MPV 7.9 fL L fL (8.7-11.7) Neut % (Auto) 66.2 % % (39.3-74.2) Lymph % (Auto) 22.0 % % (15.0-45.0) [place] % (Auto) 7.0 % % (4.5-13.0) Eos % (Auto) 2.9 % % (0.6-7.6) Baso % (Auto) 1.1 % % (0.3-1.7) Nucleat RBC Rel Count 0.0 % % (0.0-0.2) Absolute Neuts (auto) 5.88 10^3/uL 10^3/uL (1.70-6.50) Absolute Lymphs (auto) 1.95 10^3/uL 10^3/uL (1.00-3.00) Absolute Monos (auto) 0.62 10^3/uL 10^3/uL (0.30-0.80) Absolute Eos (auto) 0.26 10^3/uL 10^3/uL (0.03-0.40) Absolute Basos (auto) 0.10 10^3/uL 10^3/uL (0.02-0.10) Absolute Nucleated RBC 0.00 10^3/uL 10^3/uL (0-0.01) Immature Gran % 0.8 % % (0.0-1.1) Immature Gran # 0.07 10^3/uL 10^3/uL (0.00-0.10) Platelet Estimate INCREASED H (ADEQ) Polychromasia 1+ H Hypochromasia 1+ H Microcytic Cells 1+ H PT 13.5 SEC SEC (12.0-15.0) INR 1.01 (0.83-1.16) APTT 32.6 SEC SEC (23.0-38.0) Sodium 137 mEq/L mEq/L (135-145) Potassium 4.4 mEq/L mEq/L (3.5-5.2) Chloride 102 mEq/L mEq/L (97-110) Carbon Dioxide 24 mEq/l mEq/l (22-31) Anion Gap 11 mEq/L mEq/L (8-16) BUN 7 mg/dL mg/dL (7-23) Creatinine 0.7 mg/dL mg/dL (0.6-1.0) Estimated GFR > 60 Glucose 91 mg/dL mg/dL (70-100) Calcium 8.5 mg/dL mg/dL (8.5-10.4) Total Bilirubin < 0.1 mg/dL L mg/dL (0.1-1.4) Conjugated Bilirubin 0.1 mg/dL mg/dL (0.0-0.5) Unconjugated Bilirubin 0.0 mg/dL mg/dL (0.0-1.1) AST 21 IU/L IU/L (14-46) ALT 31 IU/L IU/L (9-52) Alkaline Phosphatase 126 IU/L IU/L (38-126) Total Protein 5.3 g/dL L g/dL (6.3-8.2) Albumin 2.5 g/dL L g/dL (3.5-5.0) Lipase 29 IU/L IU/L (23-300) Medications Given: Discontinued Medications Al Hydroxide/Mg Hydroxide (Maalox Susp) 30 ml PO ONCE ONE Stop: 03/10/17 12:18 Last Admin: 03/10/17 12:35 Dose: 30 ml Hyoscyamine Sulfate (Levsin, Hyomax-Sl) 0.25 mg PO ONCE ONE Stop: 03/10/17 12:18 Last Admin: 03/10/17 12:35 Dose: 0.25 mg Sodium Chloride (Ns) 1,000 mls @ 0 mls/hr IV EDNOW ONE; Wide Open PRN Reason: Protocol Stop: 03/10/17 12:18 Last Admin: 03/10/17 12:46 Dose: 1,000 mls Famotidine/Sodium Chloride (Pepcid 20 Mg (Premix)) 50 mls @ 200 mls/hr IV EDNOW ONE Stop: 03/10/17 12:31 Last Admin: 03/10/17 12:46 Dose: 50 mls Lidocaine (Lidocaine 2% Viscous) 15 ml PO ONCE ONE Stop: 03/10/17 12:18 Last Admin: 03/10/17 12:35 Dose: 15 ml Departure - Departure Disposition: Home, Routine, Self-Care Clinical Impression: Gastritis and duodenitis, Sludge in gallbladder Iron deficiency anemia Qualifiers: Iron deficiency anemia type: inadequate dietary iron intake Qualified Code(s): D50.8 - Other iron deficiency anemias Condition: Good Instructions: Gastritis (ED), Diet for Stomach Ulcers and Gastritis (ED), Duodenitis (ED) Additional Instructions: Consume a minimum of 8-10 glasses of water or electrolyte fluid replacement drinks that include Gatorade, Powerade, Pedialyte. Eat a bland diet for the next 48 hours and then slowly advance as tolerated to a gastritis diet. Take Carafate 3 times a day before meals and at bedtime for 1 week. Follow-up with Gastroenterology in the next 7-10 days. If unable to swallow abnormal multivitamin; start taking gummy vitamins with iron. Return to the Emergency Room if symptoms do not resolve in the next 48-72 hours , you spike a fever > 102 F, or experience intractable abdominal pain/nausea/ vomiting. Referrals: Robinson Schultz MD [Medical Doctor] - As per Instructions Prescriptions: Sucralfate [Carafate 1 GM (*)] 1 gm PO ACHS #28 tab
[2017-03-10] MEDS ORDERED: FAMOTIDINE 20 MG/NACL 50 ML IV ONE (12:17)
[2017-03-10] MEDS ORDERED: LIDOCAINE 2% VISCOUS 15 ML UDCUP PO ONE (12:17)
[2017-03-10] MEDS ORDERED: HYOSCYAMINE SULFATE 0.125 MG TAB PO ONE (12:17)
[2017-03-10] MEDS ORDERED: NS 1,000 ML IV ONE (12:17)
[2017-03-10] MEDS ORDERED: MAG HYDROX/AL HYDROX/SIMETH 30 ML UDCUP PO ONE (12:17)
--- NOTE | 2017-03-10 12:55 | CPEKG ---
Heart Rate: 95 RR Interval: 632 P-R Interval: 124 QRSD Interval: 80 QT Interval: 360 QTC Interval: 453 P [place]: 79 QRS [place]: 21 T Wave [place]: 24 EKG Severity - NORMAL ECG - EKG Impression: SINUS RHYTHM Electronically Signed By: Adore Friend 11-Mar-2017 22:44:09
[2017-03-10 12:58] LABS: PLATELET COUNT 703 10^3/uL (150-400)
[2017-03-10 13:13] LABS: INR 1.01 (0.83-1.16); PROTIME(PATIENT) 13.5 SEC (12.0-15.0)
[2017-03-10 13:55] VITALS: RESP 16
[2017-03-10 16:40] VITALS: BP 104/59; PULSE 84; TEMP 97.9; O2SAT 97
== END 2017-03-10 16:40 | disposition home or self-care (01) ==
DX: K29.70 Gastritis, unspecified, without bleeding (principal); K29.80 Duodenitis without bleeding; D50.8 Other iron deficiency anemias; K83.9 Disease of biliary tract, unspecified
CPT/HCPCS: 96374

== ENCOUNTER 2018-06-22 13:43 | Emergency (ER) | payer MEDICAID ==
[2018-06-22 13:54] VITALS: BP 118/73
--- NOTE | 2018-06-22 14:08 | EDPHY ---
H & P Time Seen by Provider: 06/22/18 14:00 HPI/ROS: CHIEF COMPLAINT: PICC line malfunction HISTORY OF PRESENT ILLNESS: Patient is a 42-year-old female who presents emergency department with PICC line malfunction. Patient was diagnosed with sepsis and admitted to the ICU previously. She has been on outpatient antibiotics since being discharged. She takes her antibiotics once daily through her PICC line. Last night her PICC line stopped working. It still did not work today and came to the emergency department. She has no complaints of pain. No chest pain or shortness of breath. No fever or chills. REVIEW OF SYSTEMS: 10 systems were reveiwed and are negative with the exception of the elements mentioned in the history of present illness. Past Medical/Surgical History: Includes sepsis, herniated disc, anemia Past surgical history: Includes , small-bowel resection Social history: The patient does not smoke Smoking Status: Never smoked Physical Exam: Vitals noted. Afebrile. GENERAL: Well-appearing, in no acute distress, alert. HEENT: Eyes normal to inspection. NECK: Normal, supple. RESPIRATORY: Clear to auscultation bilaterally, no rales, rhonchi or wheezing. Chest: PICC line is in the right chest. There is no surrounding erythema or warmth. Normal appearing. CVS: Regular rate and rhythm, no rubs, murmurs, or gallops. SKIN: Normal color, no rash, warm, dry. No pallor. EXTREMITIES: Normal appearing. NEURO/PSYCH: Alert and oriented, normal mood and affect. Constitutional: Initial Vital Signs Temperature (C) 37.1 C 06/22/18 13:52 Heart Rate 106 H 06/22/18 13:52 Respiratory Rate 16 06/22/18 13:52 Blood Pressure 118/73 06/22/18 13:52 O2 Sat (%) 100 06/22/18 13:52 O2 Delivery Mode Room Air Allergies/Adverse Reactions: Penicillins Allergy (Verified 12/29/17 14:45) steri strips Allergy (Uncoded 12/29/17 14:45) Home Medications: Medication Instructions Recorded Amphet Asp and D/Amphet [Adderall 20 mg PO BID 01/14/17 20 mg (*)] Zolpidem Tartrate [Ambien 5MG (*)] 5 mg PO HS PRN 01/14/17 oxyCODONE HCL [Oxycontin] 10 mg PO BID 01/14/17 oxyCODONE HCL/ACETAMINOPHEN 1 each PO BID 01/14/17 [Percocet 10-325 mg Tablet] traMADol [Ultram 50 mg (*)] 100 mg PO QID 01/14/17 Acetaminophen [Tylenol 325mg (*)] 650 mg PO Q4HRS PRN tab 01/15/17 Clindamycin 06/22/18 Dilaudid 06/22/18 Medical Decision Making ED Course/Re-evaluation: In the emergency department the nursing staff flush the patient's PICC line. After small amount of resistance a line worked appropriately. The nurse states that the PICC line appears to be functioning normal at this point. A gave the patient warnings prior to leaving. She will return worsening symptoms. Differential Diagnosis: My differential includes but is not limited to PICC line malfunction, clot, dissection Departure - Departure Disposition: Home, Routine, Self-Care Clinical Impression: Occluded PICC line Qualifiers: Encounter type: initial encounter Qualified Code(s): T82.898A - Other specified complication of vascular prosthetic devices, implants and grafts, initial encounter Condition: Good Instructions: Peripherally Inserted Central Catheters and Midline Catheters (DC ) Additional Instructions: Return if her PICC line starts to malfunction once again. Return if you developed pain, surrounding redness or fever. Referrals: JACOB BURTON [Other] - 2-3 days, if not improved
== END 2018-06-22 14:13 | disposition home or self-care (01) ==
DX: T82.514A Breakdown (mechanical) of infusion catheter, initial encounter (principal); Y82.8 Other medical devices associated with adverse incidents; Z88.0 Allergy status to penicillin